=== PATIENT | male | born 1955 | race Caucasian/White ===

== ENCOUNTER 2017-08-29 12:36 | Inpatient (IN) ==
[2017-08-29] MEDS ORDERED: ONDANSETRON 4 MG/2 ML VIAL IV STA (13:30)
[2017-08-29] MEDS ORDERED: SODIUM CHLORIDE 0.9% 1,000 ML IV STA ×2 (13:30→15:22)
[2017-08-29 14:02] LABS: Basophils % 0.2 % (0.0-0.8); Eosinophils # 0.4 10*3/uL (0.0-0.87); Eosinophils % 4.5 % (0.00-10.9); Hematocrit 42.3 VOL% (42.0-52.0); Hemoglobin 14.2 GM/DL (14.0-18.0); Immature Granulocytes % 0.3 %; Immature Granulocytes Absolute 0.03 #; Lymphocytes # 0.3 10*3/uL (1.4-4.0); Lymphocytes % 3.6 % (21.2-54.2); Mean Corpuscular HGB Conc 33.6 GM/DL (32-36); Mean Corpuscular Hemoglobin 30 PG (27-34); Mean Corpuscular Volume 89.2 FL (87-102); Mean Platelet Volume 9.8 FL (9.6-12.0); Monocytes # 0.4 10*3/uL (0.11-0.8); Monocytes % 4.5 % (1.7-12.7); Neutrophils # 8.2 10*3/uL (1.4-7.4); Neutrophils % 86.9 % (38.7-73.9); Platelet Count 145 T/CUMM (130-400); Red Blood Count 4.74 MC/CUMM (3.8-5.5); Red Cell Distribution Width 13.6 % (9.3-17.3); White Blood Count 9.4 T/CUMM (4-12)
[2017-08-29 14:18] LABS: Albumin 3.7 G/DL (3.4-5.0); Bilirubin,Total 0.4 MG/DL (0.2-1.0); Calcium 7.9 MG/DL (8.5-10.1); Osmolality,Calculated 283.4 MOS/KG (273-304); Potassium 4.4 MMOL/L (3.5-5.1); Total Protein 7.2 G/DL (6.4-8.3)
[2017-08-29 14:58] LABS: Band Neutrophils 6 % (0-10); Eosinophils 4 % (0-10); Lymphocytes 4 % (20-55); Segmented Neutrophils 77 % (50-85); Total Cells Counted 100
[2017-08-29 14:59] LABS: Hypochromasia 1+; Platelet Estimate Normal
[2017-08-29 15:49] LABS: Apearance,Urine CLEAR (Clear); Bilirubin,Urine Negative (Negative); Blood, Urine Negative (Negative); Glucose,Urine (UA) Negative (Negative); Ketones,Urine 5 mg/dL (Negative); Mucus,Urine Occasional /LPF (Occasional); Nitrite,Urine Negative (Negative); Protein,Urine Negative; RBC,Urine 1 /HPF (0-4); Urine Color Yellow (Yellow); Urine Specific Gravity 1.044 (1.001-1.035); Urine Urobilinogen < 2.0 EU/DL (0.2-1.0); WBC,Urine 1 /HPF (0-6)
[2017-08-29] MEDS ORDERED: ACETAMINOPHEN 500 MG TABLET ONE (16:50)
[2017-08-29] MEDS ORDERED: ACETAMINOPHEN 500 MG TABLET PO STA (16:58)
[2017-08-29] MEDS ORDERED: PIPERACILLIN/TAZOBACTAM 3,375 MG in SODIUM CHLORIDE 0.9% 100 ML IV STA (17:01)
[2017-08-29] MEDS ORDERED: ONDANSETRON 4 MG/2 ML VIAL IV PRN (17:14)
[2017-08-29] MEDS ORDERED: ACETAMINOPHEN 325 MG TABLET PO PRN (17:14)
[2017-08-29] MEDS: SODIUM CHLORIDE 0.9% 1,000 ML IV SCH (17:35)
[2017-08-29] MEDS ORDERED: PROMETHAZINE 25 MG/1 ML VIAL IM PRN (18:49)
[2017-08-29] MEDS ORDERED: ALBUTEROL/IPRATROPIUM 3 ML NEB RESP TX PRN (18:49)
[2017-08-29] MEDS ORDERED: KETOROLAC 15 MG/1 ML VIAL IV PRN (18:49)
[2017-08-29] MEDS: methylPREDNISolone SOD SUC 40 MG/1 ML VIAL IV SCH (19:25)
[2017-08-29] MEDS: ALBUTEROL/IPRATROPIUM 3 ML NEB RESP TX SCH (20:05)
[2017-08-29] MEDS ORDERED: MAGNESIUM SULF RIDER 2 GM in PREMIX 1 EACH IV ONE (21:46)
[2017-08-29] MEDS ORDERED: DEXTROSE 50% 25 GM/50 ML VIAL IV PRN (21:50)
[2017-08-29] MEDS ORDERED: GLUCAGON 1 MG VIAL IM PRN (21:50)
[2017-08-29] MEDS: VALSARTAN 160 MG TABLET PO SCH (23:38)
[2017-08-29] MEDS: amLODIPine 10 MG TABLET PO SCH (23:39)
[2017-08-29] MEDS: DOCUSATE SODIUM 100 MG CAPSULE PO SCH (23:39)
[2017-08-30] MEDS: ALBUTEROL/IPRATROPIUM 3 ML NEB RESP TX SCH ×4 (00:36→20:20)
[2017-08-30] MEDS: PIPERACILLIN/TAZOBACTAM 3,375 MG in SODIUM CHLORIDE 0.9% 100 ML IV SCH ×4 (01:46→23:02)
[2017-08-30] MEDS: SODIUM CHLORIDE 0.9% 1,000 ML IV SCH ×4 (03:18→20:32)
[2017-08-30 04:55] LABS: Basophils % 0.1 % (0.0-0.8); Eosinophils % 0.1 % (0.00-10.9); Hematocrit 36.5 VOL% (42.0-52.0); Immature Granulocytes % 0.4 %; Immature Granulocytes Absolute 0.03 #; Lymphocytes # 0.6 10*3/uL (1.4-4.0); Mean Corpuscular HGB Conc 32.9 GM/DL (32-36); Mean Corpuscular Hemoglobin 30 PG (27-34); Mean Platelet Volume 10.4 FL (9.6-12.0); Monocytes # 0.2 10*3/uL (0.11-0.8); Monocytes % 2.6 % (1.7-12.7); Neutrophils # 6.5 10*3/uL (1.4-7.4); Neutrophils % 88.8 % (38.7-73.9); Platelet Count 129 T/CUMM (130-400); Red Blood Count 4.01 MC/CUMM (3.8-5.5); Red Cell Distribution Width 13.7 % (9.3-17.3); White Blood Count 7.3 T/CUMM (4-12)
[2017-08-30 05:18] LABS: Calcium 6.9 MG/DL (8.5-10.1); Osmolality,Calculated 284.4 MOS/KG (273-304); Potassium 3.9 MMOL/L (3.5-5.1)
[2017-08-30 05:53] LABS: Band Neutrophils 3 % (0-10); Lymphocytes 13 % (20-55); Platelet Estimate Decreased; Segmented Neutrophils 84 % (50-85); Total Cells Counted 100
[2017-08-30] MEDS ORDERED: MAGNESIUM SULF RIDER 1 GM in PREMIX 1 EACH IV ONE (09:00)
[2017-08-30] MEDS: methylPREDNISolone SOD SUC 40 MG/1 ML VIAL IV SCH ×2 (09:00→20:30)
[2017-08-30] MEDS: PANTOPRAZOLE 40 MG TABLET PO SCH (09:01)
[2017-08-30] MEDS: DOCUSATE SODIUM 100 MG CAPSULE PO SCH ×2 (09:02→20:24)
[2017-08-30] MEDS: INSULIN REGULAR 100 UNIT/ML SUBCUT SCH ×4 (09:09→20:25)
[2017-08-30] MEDS: CLINDAMYCIN INJ 600 MG in PREMIX 1 EACH IV SCH ×2 (10:16→16:49)
[2017-08-30] MEDS: ASPIRIN EC 81 MG TABLET PO SCH (20:31)
[2017-08-30] MEDS: VALSARTAN 160 MG TABLET PO SCH (20:31)
[2017-08-30] MEDS: amLODIPine 10 MG TABLET PO SCH (23:04)
[2017-08-31] MEDS: ALBUTEROL/IPRATROPIUM 3 ML NEB RESP TX SCH ×4 (01:03→19:00)
[2017-08-31] MEDS: CLINDAMYCIN INJ 600 MG in PREMIX 1 EACH IV SCH ×3 (01:11→16:59)
[2017-08-31 04:55] LABS: Basophils % 0.1 % (0.0-0.8); Eosinophils % 0.1 % (0.00-10.9); Hematocrit 34.2 VOL% (42.0-52.0); Hemoglobin 11.4 GM/DL (14.0-18.0); Immature Granulocytes % 0.6 %; Immature Granulocytes Absolute 0.05 #; Lymphocytes % 12.9 % (21.2-54.2); Mean Corpuscular HGB Conc 33.3 GM/DL (32-36); Mean Corpuscular Hemoglobin 30 PG (27-34); Mean Corpuscular Volume 89.8 FL (87-102); Mean Platelet Volume 9.8 FL (9.6-12.0); Monocytes # 0.4 10*3/uL (0.11-0.8); Monocytes % 4.9 % (1.7-12.7); Neutrophils # 6.5 10*3/uL (1.4-7.4); Neutrophils % 81.4 % (38.7-73.9); Platelet Count 137 T/CUMM (130-400); Red Blood Count 3.81 MC/CUMM (3.8-5.5); Red Cell Distribution Width 14.3 % (9.3-17.3)
[2017-08-31 05:12] LABS: Calcium 7.4 MG/DL (8.5-10.1); Potassium 4.5 MMOL/L (3.5-5.1)
[2017-08-31] MEDS: SODIUM CHLORIDE 0.9% 1,000 ML IV SCH ×3 (05:32→22:13)
[2017-08-31] MEDS: INSULIN REGULAR 100 UNIT/ML SUBCUT SCH ×4 (07:15→21:09)
[2017-08-31] MEDS: DOCUSATE SODIUM 100 MG CAPSULE PO SCH ×2 (08:58→20:54)
[2017-08-31] MEDS: PANTOPRAZOLE 40 MG TABLET PO SCH (08:58)
[2017-08-31] MEDS: PIPERACILLIN/TAZOBACTAM 3,375 MG in SODIUM CHLORIDE 0.9% 100 ML IV SCH ×2 (08:58→16:59)
[2017-08-31] MEDS: methylPREDNISolone SOD SUC 40 MG/1 ML VIAL IV SCH ×2 (08:59→20:53)
[2017-08-31] MEDS ORDERED: NOREPINEPHRINE 4 MG/4 ML VIAL IV ONE (13:53)
[2017-08-31] MEDS ORDERED: SIMETHICONE CHEW 80 MG TABLET PO PRN (18:30)
[2017-08-31] MEDS: ALUMINUM/MAGNES/SIMETH MAX STR 30 ML UDCUP PO PRN (19:01)
[2017-08-31] MEDS: amLODIPine 10 MG TABLET PO SCH (20:53)
[2017-08-31] MEDS: ASPIRIN EC 81 MG TABLET PO SCH (20:53)
[2017-08-31] MEDS: VALSARTAN 160 MG TABLET PO SCH (20:54)
[2017-09-01] MEDS: PIPERACILLIN/TAZOBACTAM 3,375 MG in SODIUM CHLORIDE 0.9% 100 ML IV SCH (00:27)
[2017-09-01] MEDS: CLINDAMYCIN INJ 600 MG in PREMIX 1 EACH IV SCH (00:30)
[2017-09-01] MEDS: ALBUTEROL/IPRATROPIUM 3 ML NEB RESP TX SCH ×2 (01:51→07:32)
[2017-09-01 04:21] VITALS: BP 136/75
[2017-09-01] MEDS: ALUMINUM/MAGNES/SIMETH MAX STR 30 ML UDCUP PO PRN (07:19)
[2017-09-01] MEDS: INSULIN REGULAR 100 UNIT/ML SUBCUT SCH ×2 (08:33→12:24)
[2017-09-01] MEDS ORDERED: AMOXICILLIN/CLAV 500 MG TABLET PO SCH (09:00)
[2017-09-01] MEDS ORDERED: PNEUMOCOCCAL VACCINE (23 VALENT) 0.5 ML VIAL IM ONE ×2 (09:00→13:30)
[2017-09-01] MEDS: PANTOPRAZOLE 40 MG TABLET PO SCH (09:06)
[2017-09-01] MEDS: DOCUSATE SODIUM 100 MG CAPSULE PO SCH (09:06)
== END 2017-09-01 13:43 | disposition home or self-care (01) | DRG 391 ==
LOC: EDBD → EDUNIT# → N.ED 12:36 → N.EDINP 17:13 → N.ICU 17:36
PROVIDERS: ADMIT Internal Medicine; ATTEND Internal Medicine

== ENCOUNTER 2018-12-05 11:02 | Inpatient (IN) ==
[~2018-12-05 11:02] MED LIST: ASPIRIN 325 MG TABLET PO ONE; DIAZEPAM 5 MG TABLET PO ONE; MAGNESIUM SULF RIDER 2 GM in PREMIX 1 EACH IV PRN; POTASSIUM CHLORIDE RIDER 10 MEQ in PREMIX 1 EACH IV PRN; diphenhydrAMINE CAP 25 MG CAPSULE PO ONE
[2018-12-05] MEDS ORDERED: ASPIRIN 325 MG TABLET ONE (12:17)
[2018-12-05] MEDS ORDERED: DIAZEPAM 5 MG TABLET ONE (12:17)
[2018-12-05] MEDS ORDERED: diphenhydrAMINE CAP 25 MG CAPSULE ONE (12:17)
[2018-12-05] MEDS: SODIUM CHLORIDE 0.9% 1,000 ML IV SCH ×2 (12:21→19:30)
[2018-12-05] MEDS ORDERED: LIDOCAINE 1% 20 ML VIAL ONE (12:46)
[2018-12-05] MEDS ORDERED: HEPARIN/NACL 0.9% 2 UNITS/ML 1,000 ML IV ONE (12:46)
[2018-12-05] MEDS ORDERED: HYDROmorphone 2 MG/1 ML VIAL ONE (13:12)
[2018-12-05] MEDS ORDERED: MIDAZOLAM 2 MG/2 ML VIAL ONE (13:13)
[2018-12-05] MEDS ORDERED: ZALEPLON 5 MG CAPSULE PO PRN (13:57)
[2018-12-05] MEDS ORDERED: ONDANSETRON 4 MG/2 ML VIAL IV PRN (13:57)
[2018-12-05] MEDS ORDERED: GLUCAGON 1 MG VIAL IM PRN (13:57)
[2018-12-05] MEDS ORDERED: NITROGLYCERIN SL 0.4 MG TABLET SL PRN (13:57)
[2018-12-05] MEDS ORDERED: DEXTROSE 50% 25 GM/50 ML VIAL IV PRN (13:57)
[2018-12-05] MEDS ORDERED: INFLUENZA VIRUS VACCINE 0.5 ML SYRINGE IM ONE (14:51)
[2018-12-05] MEDS: OLMESARTAN 20 MG TABLET PO SCH (20:48)
[2018-12-05] MEDS: ROSUVASTATIN 20 MG TABLET PO SCH (20:49)
[2018-12-05] MEDS: amLODIPine 10 MG TABLET PO SCH (20:49)
[2018-12-05] MEDS: ASPIRIN EC 81 MG TABLET PO SCH (20:49)
[2018-12-05] MEDS: OMEGA 3 ACID ETHYL ESTERS 1 GM CAPSULE PO SCH (20:49)
[2018-12-06 05:00] LABS: Calcium 8.8 MG/DL (8.5-10.1); Osmolality,Calculated 286.1 MOS/KG (273-304)
[2018-12-06] MEDS: SODIUM CHLORIDE 0.9% 1,000 ML IV SCH ×2 (05:52→16:01)
[2018-12-06] MEDS ORDERED: DEXTROSE 50% 25 GM/50 ML VIAL IV PRN (06:55)
[2018-12-06] MEDS ORDERED: CEFUROXIME INJ 1,500 MG in SYRINGE 1 EACH IV ONE (06:55)
[2018-12-06] MEDS ORDERED: GLUCAGON 1 MG VIAL IM PRN (06:55)
[2018-12-06] MEDS ORDERED: SODIUM CHLORIDE 0.9% 1,000 ML IV SCH (07:00)
[2018-12-06 08:31] LABS: ABG Base Excess 0.5 MMOL/L (-2.5-2.5); ABG HCO3 25.1 MMOL/L (20-26); ABG Oxygen Saturation 93.4 % (95-100); ABG PCO2 40.4 MM HG (35-48); ABG PH 7.411 (7.35-7.45); ABG PO2 66.9 MM HG (80-95); ABG TCO2 26.3 MMOL/L (23-27); Allen Test Positive; Pt O2 Delivery Device Room Air
[2018-12-06] MEDS ORDERED: CHLORTHALIDONE 25 MG TABLET PO SCH (09:00)
[2018-12-06] MEDS ORDERED: CHLORHEXIDINE 4% SOLN 118 ML BOTTLE TOP SCH (09:00)
[2018-12-06] MEDS: CHLORHEXIDINE 0.12% ORAL RINSE 60 ML BOTTLE SWISH/SPIT SCH ×2 (10:20→21:22)
[2018-12-06] MEDS: CHLORHEXIDINE 4% SOLN 118 ML BOTTLE TOP SCH ×3 (13:53→21:27)
[2018-12-06] MEDS: OLMESARTAN 20 MG TABLET PO SCH (21:17)
[2018-12-06] MEDS: ASPIRIN EC 81 MG TABLET PO SCH (21:17)
[2018-12-06] MEDS: OMEGA 3 ACID ETHYL ESTERS 1 GM CAPSULE PO SCH (21:17)
[2018-12-06] MEDS: ROSUVASTATIN 20 MG TABLET PO SCH (21:17)
[2018-12-06] MEDS: amLODIPine 10 MG TABLET PO SCH (21:22)
[2018-12-07] MEDS: SODIUM CHLORIDE 0.9% 1,000 ML IV SCH (01:53)
[2018-12-07] MEDS ORDERED: PAPAVERINE 60 MG/2 ML VIAL ONE (04:27)
[2018-12-07] MEDS ORDERED: VANCOMYCIN 1,000 MG VIAL ONE (04:28)
[2018-12-07] MEDS ORDERED: VANCOMYCIN 500 MG VIAL ONE (04:28)
[2018-12-07] MEDS: CHLORHEXIDINE 4% SOLN 118 ML BOTTLE TOP SCH ×2 (05:00→11:56)
[2018-12-07 05:48] LABS: Basophils % 0.6 % (0.0-0.8); Eosinophils # 0.6 10*3/uL (0.0-0.87); Eosinophils % 9.7 % (0.00-10.9); Hematocrit 41.4 VOL% (42.0-52.0); Hemoglobin 13.7 GM/DL (14.0-18.0); Immature Granulocytes % 0.3 %; Immature Granulocytes Absolute 0.02 #; Lymphocytes % 30.6 % (21.2-54.2); Mean Corpuscular HGB Conc 33.1 GM/DL (32-36); Mean Corpuscular Volume 89.6 FL (87-102); Mean Platelet Volume 10.6 FL (9.6-12.0); Monocytes % 8.4 % (1.7-12.7); Neutrophils % 50.4 % (38.7-73.9); Platelet Count 162 T/CUMM (130-400); Red Blood Count 4.62 MC/CUMM (3.8-5.5); Red Cell Distribution Width 13.4 % (9.3-17.3); White Blood Count 6.4 T/CUMM (4-12)
[2018-12-07] MEDS ORDERED: DIAZEPAM 5 MG TABLET PO ONE (06:00)
[2018-12-07] MEDS ORDERED: CEFUROXIME INJ 1,500 MG in SYRINGE 1 EACH IV ONE (06:00)
[2018-12-07] MEDS ORDERED: FAMOTIDINE 20 MG TABLET PO ONE (06:00)
[2018-12-07 06:05] LABS: Calcium 8.8 MG/DL (8.5-10.1); Osmolality,Calculated 286.1 MOS/KG (273-304)
[2018-12-07] MEDS ORDERED: SUFentanil 250 MCG/5 ML AMP ONE (06:20)
[2018-12-07] MEDS ORDERED: MIDAZOLAM 10 MG/2 ML VIAL ONE (06:20)
[2018-12-07] MEDS ORDERED: ePHEDrine 50 MG/ML AMP ONE (06:20)
[2018-12-07 07:44] LABS: ABG Base Excess 0.5 MMOL/L (-2.5-2.5); ABG HCO3 24.8 MMOL/L (20-26); ABG Oxygen Saturation 97.7 % (95-100); ABG PCO2 36.3 MM HG (35-48); ABG PH 7.434 (7.35-7.45); ABG PO2 90.7 MM HG (80-95); Glucose Heart Surgery 142 MG/DL (74-106); Hemoglobin Heart Surgery 13.7 G/DL (14.0-18.0); Ionized Calcium Arterial 1.17 MMOL/L (1.21-1.46); PCO2 Patient Temp Arterial 36.3 MMHG; PH Patient Temp Arterial 7.434; PO2 Patient Temp Arterial 90.7 MM HG; Patient Temperature 37 CELCIUS; Potassium Heart/CVR 4.4 MMOL/L (3.5-5.1); Sodium Heart/CVR 138 MMOL/L (135-145)
[2018-12-07 08:40] LABS: Apearance,Urine CLEAR (Clear); Bacteria,Urine Occasional /HPF (Few); Bilirubin,Urine Negative (Negative); Blood, Urine Negative (Negative); Glucose,Urine (UA) Negative (Negative); Ketones,Urine Negative (Negative); Mucus,Urine Occasional /LPF (Occasional); Nitrite,Urine Negative (Negative); Protein,Urine Negative; Squamous Epithelial Cell,Urine Occasional /HPF (0-10); Urine Color Yellow (Yellow); Urine Specific Gravity 1.012 (1.001-1.035); Urine Urobilinogen < 2.0 EU/DL (0.2-1.0)
[2018-12-07 09:09] LABS: Hemoglobin Heart Surgery 10.4 G/DL (14.0-18.0); PCO2 Patient Temp Venous 35.8 MM HG; PH Patient Temp Venous 7.456; PO2 Patient Temp Venous 34.8 MM HG; Potassium Heart/CVR 5.5 MMOL/L (3.5-5.1); VBG Base Excess 0.8 MEQ/L (0-4); VBG HCO3 25.1 MEQ/L (24-28); VBG Oxygen Saturation 76.3 %; VBG PCO2 39.1 MMHG (41-51); VBG PH 7.426; VBG PO2 40.1 MMHG (17-40)
[2018-12-07 09:39] LABS: Hemoglobin Heart Surgery 10.2 G/DL (14.0-18.0); PCO2 Patient Temp Venous 45.7 MM HG; PH Patient Temp Venous 7.359; VBG Base Excess -0.5 MEQ/L (0-4); VBG HCO3 25.4 MEQ/L (24-28); VBG Oxygen Saturation 76.1 %; VBG PCO2 47.7 MMHG (41-51); VBG PH 7.345; VBG PO2 42.9 MMHG (17-40)
[2018-12-07 09:40] LABS: Potassium Heart/CVR 6.2 MMOL/L (3.5-5.1)
[2018-12-07] MEDS ORDERED: NITROPRUSSIDE 50 MG/2 ML VIAL ONE (09:45)
[2018-12-07] MEDS ORDERED: PHENYLEPHRINE DRIP 40 MG/250 ML PREMIX IV ONE (09:45)
[2018-12-07 10:07] LABS: Hematocrit Heart Surgery 31.8 PERCENT (42-52); Hemoglobin Heart Surgery 10.3 G/DL (14.0-18.0); PCO2 Patient Temp Venous 41.4 MM HG; PH Patient Temp Venous 7.381; PO2 Patient Temp Venous 37.2 MM HG; VBG Base Excess -0.5 MEQ/L (0-4); VBG HCO3 23.6 MEQ/L (24-28); VBG Oxygen Saturation 74.5 %; VBG PCO2 43.4 MMHG (41-51); VBG PH 7.367; VBG PO2 39.9 MMHG (17-40)
[2018-12-07 10:09] LABS: Potassium Heart/CVR 6.6 MMOL/L (3.5-5.1)
[2018-12-07] MEDS ORDERED: HEPARIN 10,000 UNIT/10 ML VIAL ONE (10:40)
[2018-12-07] MEDS ORDERED: LIDOCAINE 2% 5 ML VIAL ONE ×2 (10:40→11:43)
[2018-12-07] MEDS ORDERED: MAGNESIUM SULFATE 5 GM/10 ML VIAL IV ONE (10:40)
[2018-12-07] MEDS ORDERED: methylPREDNISolone SOD SUC 1,000 MG/8 ML VIAL ONE (10:40)
[2018-12-07] MEDS ORDERED: DEXTROSE 5% KCL 20 MEQ 20 MEQ/1,000 ML BAG IV ONE (10:40)
[2018-12-07] MEDS ORDERED: MANNITOL 100 GM/500 ML BAG IV ONE (10:40)
[2018-12-07] MEDS ORDERED: ALBUMIN 25% 25 GM/100 ML VIAL IV ONE (10:40)
[2018-12-07] MEDS ORDERED: PROTAMINE SULFATE 250 MG/25 ML VIAL IV ONE (10:40)
[2018-12-07] MEDS ORDERED: SODIUM BICARBONATE 50 MEQ/50 ML VIAL IV ONE (10:40)
[2018-12-07] MEDS ORDERED: FUROSEMIDE 20 MG/2 ML VIAL ONE ×2 (10:41→11:43)
[2018-12-07] MEDS ORDERED: PROTAMINE SULFATE 50 MG/5 ML VIAL IV ONE (10:41)
[2018-12-07 10:52] LABS: ABG Base Excess -1.8 MMOL/L (-2.5-2.5); ABG HCO3 22.9 MMOL/L (20-26); ABG Oxygen Saturation 99.7 % (95-100); ABG PCO2 37.5 MM HG (35-48); ABG PH 7.391 (7.35-7.45); ABG TCO2 20.6 MMOL/L (23-27); Glucose Heart Surgery 191 MG/DL (74-106); Hematocrit Heart Surgery 32.5 PERCENT (42-52); Hemoglobin Heart Surgery 10.5 G/DL (14.0-18.0); Ionized Calcium Arterial 1.34 MMOL/L (1.21-1.46); PCO2 Patient Temp Arterial 37.5 MMHG; PH Patient Temp Arterial 7.391; Patient Temperature 37 CELCIUS; Potassium Heart/CVR 5.3 MMOL/L (3.5-5.1); Sodium Heart/CVR 130 MMOL/L (135-145)
[2018-12-07] MEDS ORDERED: CALCIUM CHLORIDE 1,000 MG/10 ML SYRINGE IV PRN (11:42)
[2018-12-07] MEDS ORDERED: MIDAZOLAM 10 MG/2 ML VIAL IV PRN (11:42)
[2018-12-07] MEDS ORDERED: DEXTROSE 50% 25 GM/50 ML VIAL IV PRN ×2 (11:42)
[2018-12-07] MEDS ORDERED: MORPHINE 4 MG/1 ML VIAL IV PRN (11:42)
[2018-12-07] MEDS ORDERED: ONDANSETRON 4 MG/2 ML VIAL IV PRN (11:42)
[2018-12-07] MEDS ORDERED: LACTATED RINGERS 250 ML IV PRN (11:42)
[2018-12-07] MEDS ORDERED: MAGNESIUM SULF RIDER 4 GM in PREMIX 1 EACH IV PRN (11:42)
[2018-12-07] MEDS ORDERED: INSULIN REGULAR 100 UNIT/ML IV ONE (11:42)
[2018-12-07] MEDS ORDERED: NITROPRUSSIDE 100 MG in DEXTROSE 5% 250 ML IV PRN (11:42)
[2018-12-07] MEDS ORDERED: INSULIN REGULAR 100 UNIT/ML IV PRN (11:42)
[2018-12-07] MEDS ORDERED: MAGNESIUM SULF RIDER 2 GM in PREMIX 1 EACH IV PRN (11:42)
[2018-12-07] MEDS ORDERED: VECURONIUM 10 MG VIAL IV PRN ×2 (11:42)
[2018-12-07] MEDS ORDERED: ACETAMINOPHEN 650 MG SUPP RECTAL PRN (11:42)
[2018-12-07] MEDS ORDERED: HEPARIN/NACL 0.9% 2 UNITS/ML 500 ML IV ONE (11:43)
[2018-12-07] MEDS ORDERED: ALBUMIN 5% 12.5 GM/250 ML VIAL IV ONE (11:43)
[2018-12-07] MEDS ORDERED: PHENYLEPHRINE DRIP 20 MG/250 ML PREMIX IV ONE (11:43)
[2018-12-07] MEDS ORDERED: CALCIUM CHLORIDE 1,000 MG/10 ML VIAL IV ONE (11:43)
[2018-12-07] MEDS ORDERED: SEVOFLURANE 1 UNIT/15 MINUTE INH ONE (11:43)
[2018-12-07] MEDS ORDERED: SODIUM CHLORIDE 0.9% 1,000 ML IV ONE (11:44)
[2018-12-07] MEDS ORDERED: ALBUTEROL INHALER 8 GM INH ONE (11:44)
[2018-12-07] MEDS ORDERED: SODIUM CHLORIDE 0.9% 100 ML IV ONE (11:44)
[2018-12-07] MEDS ORDERED: AMINOCAPROIC ACID 5,000 MG/20 ML VIAL ONE (11:44)
[2018-12-07] MEDS ORDERED: SODIUM CHLORIDE 0.9% 250 ML IV ONE (11:44)
[2018-12-07] MEDS: PHENYLEPHRINE DRIP 40 MG/250 ML PREMIX IV PRN (11:59)
[2018-12-07] MEDS ORDERED: SODIUM CHLORIDE 0.45% 1,000 ML IV SCH ×2 (12:00)
[2018-12-07] MEDS ORDERED: INSULIN REGULAR DRIP 100 ML IV SCH (12:00)
[2018-12-07 12:11] LABS: ABG Base Excess -2.6 MMOL/L (-2.5-2.5); ABG HCO3 23.4 MMOL/L (20-26); ABG Oxygen Saturation 95.1 % (95-100); ABG PCO2 45.8 MM HG (35-48); ABG PH 7.327 (7.35-7.45); ABG PO2 82.6 MM HG (80-95); ABG TCO2 24.8 MMOL/L (23-27); Glucose Heart Surgery 173 MG/DL (74-106); Hemoglobin Heart Surgery 11.5 G/DL (14.0-18.0); Potassium Heart/CVR 3.8 MMOL/L (3.5-5.1)
[2018-12-07 12:15] LABS: Basophils % 0.4 % (0.0-0.8); Eosinophils # 0.1 10*3/uL (0.0-0.87); Eosinophils % 1.1 % (0.00-10.9); Hematocrit 32.8 VOL% (42.0-52.0); Hemoglobin 10.5 GM/DL (14.0-18.0); Immature Granulocytes % 0.5 %; Immature Granulocytes Absolute 0.04 #; Lymphocytes # 1.4 10*3/uL (1.4-4.0); Lymphocytes % 17.1 % (21.2-54.2); Mean Corpuscular Volume 91.4 FL (87-102); Monocytes % 5.4 % (1.7-12.7); Neutrophils % 75.5 % (38.7-73.9); Platelet Count 125 T/CUMM (130-400); Red Blood Count 3.59 MC/CUMM (3.8-5.5); Red Cell Distribution Width 13.4 % (9.3-17.3)
[2018-12-07 12:25] LABS: INR 1.1; PT Patient Result 11.9 SECS (9.6-12.2); Partial Thromboplastin Time 26.1 SECS (20.8-36.0)
[2018-12-07] MEDS: LACTATED RINGERS 1,000 ML IV PRN ×2 (12:46→13:31)
[2018-12-07 12:47] LABS: CKMB % 5.1 %
[2018-12-07 12:50] LABS: Troponin I 4.65 NG/ML (0.00-0.045)
[2018-12-07 12:53] LABS: Band Neutrophils 1 % (0-10); Eosinophils 1 % (0-10); Lymphocytes 9 % (20-55); Segmented Neutrophils 87 % (50-85); Total Cells Counted 100
[2018-12-07 12:55] LABS: Platelet Estimate Decreased
[2018-12-07 12:59] LABS: Albumin 3.5 G/DL (3.4-5.0); Bilirubin,Total 0.5 MG/DL (0.2-1.0); Osmolality,Calculated 281.7 MOS/KG (273-304); Total Protein 5.6 G/DL (6.4-8.3)
[2018-12-07 12:59] LABS: ABG HCO3 22.7 MMOL/L (20-26); ABG Oxygen Saturation 95.6 % (95-100); ABG PCO2 44.6 MM HG (35-48); ABG PH 7.339 (7.35-7.45); ABG PO2 80.2 MM HG (80-95); ABG TCO2 21.5 MMOL/L (23-27); Glucose Heart Surgery 190 MG/DL (74-106); Hematocrit Heart Surgery 35.3 PERCENT (42-52); Hemoglobin Heart Surgery 11.5 G/DL (14.0-18.0); Potassium Heart/CVR 3.8 MMOL/L (3.5-5.1)
[2018-12-07] MEDS: POTASSIUM CHLORIDE RIDER 20 MEQ in PREMIX 1 EACH IV PRN ×3 (13:15→21:16)
[2018-12-07] MEDS: MIDAZOLAM 2 MG/2 ML VIAL IV PRN ×2 (13:17→14:12)
[2018-12-07 14:15] LABS: ABG Base Excess -0.7 MMOL/L (-2.5-2.5); ABG HCO3 23.8 MMOL/L (20-26); ABG Oxygen Saturation 96.9 % (95-100); ABG PCO2 39.4 MM HG (35-48); ABG PH 7.394 (7.35-7.45); ABG PO2 86.4 MM HG (80-95); ABG TCO2 21.6 MMOL/L (23-27); Glucose Heart Surgery 173 MG/DL (74-106); Hematocrit Heart Surgery 33.9 PERCENT (42-52); Potassium Heart/CVR 3.9 MMOL/L (3.5-5.1)
[2018-12-07] MEDS: KETOROLAC 30 MG/1 ML VIAL IV SCH ×2 (14:22→19:00)
[2018-12-07] MEDS ORDERED: DEXTROSE 10% 250 ML IV ONE (15:23)
[2018-12-07] MEDS: ALBUMIN 5% 12.5 GM in PREMIX 1 EACH IV PRN ×4 (15:26→23:46)
[2018-12-07] MEDS ORDERED: DEXTROSE 10% 250 ML BAG IV PRN ×2 (16:00)
[2018-12-07] MEDS: POTASSIUM CHLORIDE RIDER 10 MEQ in PREMIX 1 EACH IV PRN (16:18)
[2018-12-07 17:10] LABS: ABG Base Excess -1.1 MMOL/L (-2.5-2.5); ABG HCO3 22.7 MMOL/L (20-26); ABG Oxygen Saturation 96.1 % (95-100); ABG PCO2 34.8 MM HG (35-48); ABG PH 7.432 (7.35-7.45); ABG PO2 83.2 MM HG (80-95); ABG TCO2 23.8 MMOL/L (23-27); Glucose Heart Surgery 180 MG/DL (74-106); Hemoglobin Heart Surgery 11.4 G/DL (14.0-18.0); Potassium Heart/CVR 4.3 MMOL/L (3.5-5.1)
[2018-12-07 18:21] LABS: ABG Base Excess -1.5 MMOL/L (-2.5-2.5); ABG HCO3 23.1 MMOL/L (20-26); ABG Oxygen Saturation 96.8 % (95-100); ABG PCO2 35.1 MM HG (35-48); ABG PH 7.415 (7.35-7.45); ABG PO2 83.1 MM HG (80-95); ABG TCO2 20.3 MMOL/L (23-27); Glucose Heart Surgery 179 MG/DL (74-106); Hematocrit Heart Surgery 33.3 PERCENT (42-52); Hemoglobin Heart Surgery 10.8 G/DL (14.0-18.0); Potassium Heart/CVR 4.1 MMOL/L (3.5-5.1)
[2018-12-07] MEDS: CEFUROXIME INJ 1,500 MG in SYRINGE 1 EACH IV SCH (19:02)
[2018-12-07 19:31] LABS: ABG Base Excess -2.4 MMOL/L (-2.5-2.5); ABG HCO3 22.4 MMOL/L (20-26); ABG Oxygen Saturation 97.1 % (95-100); ABG PH 7.386 (7.35-7.45); ABG PO2 86.2 MM HG (80-95); ABG TCO2 20.1 MMOL/L (23-27); Glucose Heart Surgery 167 MG/DL (74-106); Hematocrit Heart Surgery 32.3 PERCENT (42-52); Hemoglobin Heart Surgery 10.4 G/DL (14.0-18.0); Potassium Heart/CVR 4.1 MMOL/L (3.5-5.1)
[2018-12-07 20:02] LABS: CKMB % 4.1 %
[2018-12-07 20:10] LABS: Troponin I 5.45 NG/ML (0.00-0.045)
[2018-12-07 21:06] LABS: ABG Base Excess -2.3 MMOL/L (-2.5-2.5); ABG HCO3 22.3 MMOL/L (20-26); ABG Oxygen Saturation 90.9 % (95-100); ABG PCO2 38.7 MM HG (35-48); ABG PH 7.374 (7.35-7.45); ABG PO2 60.4 MM HG (80-95); ABG TCO2 20.5 MMOL/L (23-27); Glucose Heart Surgery 147 MG/DL (74-106); Potassium Heart/CVR 4.2 MMOL/L (3.5-5.1)
[2018-12-07 21:07] LABS: Hematocrit Heart Surgery 32.5 PERCENT (42-52); Hemoglobin Heart Surgery 10.5 G/DL (14.0-18.0)
[2018-12-07] MEDS: CHLORHEXIDINE 0.12% ORAL RINSE 60 ML BOTTLE SWISH/SPIT SCH (21:16)
[2018-12-08] MEDS: KETOROLAC 30 MG/1 ML VIAL IV SCH ×4 (00:01→18:00)
[2018-12-08] MEDS: MORPHINE 10 MG/1 ML VIAL IV PRN ×2 (02:14→11:00)
[2018-12-08 04:21] LABS: ABG Base Excess -2.3 MMOL/L (-2.5-2.5); ABG HCO3 22.4 MMOL/L (20-26); ABG Oxygen Saturation 91.4 % (95-100); ABG PH 7.365 (7.35-7.45); ABG PO2 62.2 MM HG (80-95); Glucose Heart Surgery 160 MG/DL (74-106); Hematocrit Heart Surgery 29.9 PERCENT (42-52); Hemoglobin Heart Surgery 9.7 G/DL (14.0-18.0); Potassium Heart/CVR 4.1 MMOL/L (3.5-5.1)
[2018-12-08 04:24] LABS: Basophils % 0.1 % (0.0-0.8); Hemoglobin 9.3 GM/DL (14.0-18.0); Immature Granulocytes % 0.6 %; Immature Granulocytes Absolute 0.08 #; Lymphocytes % 6.9 % (21.2-54.2); Mean Corpuscular HGB Conc 32.1 GM/DL (32-36); Mean Corpuscular Volume 91.5 FL (87-102); Mean Platelet Volume 10.2 FL (9.6-12.0); Monocytes % 3.6 % (1.7-12.7); Neutrophils % 88.8 % (38.7-73.9); Platelet Count 152 T/CUMM (130-400); Red Blood Count 3.17 MC/CUMM (3.8-5.5); Red Cell Distribution Width 13.7 % (9.3-17.3)
[2018-12-08] MEDS ORDERED: FUROSEMIDE 40 MG/4 ML VIAL IV ONE (04:27)
[2018-12-08] MEDS: POTASSIUM CHLORIDE RIDER 10 MEQ in PREMIX 1 EACH IV PRN (04:34)
[2018-12-08 04:50] LABS: Albumin 3.7 G/DL (3.4-5.0); Atypical Lymphocytes Few; Bilirubin,Direct 0.13 MG/DL (0.0-0.20); Bilirubin,Total 0.4 MG/DL (0.2-1.0); Calcium 8.3 MG/DL (8.5-10.1); Lymphocytes 9 % (20-55); Osmolality,Calculated 288.3 MOS/KG (273-304); Segmented Neutrophils 86 % (50-85); Total Cells Counted 100; Total Protein 6.1 G/DL (6.4-8.3)
[2018-12-08 04:51] LABS: CKMB % 3.1 %; Hypochromasia Slight; Microcytosis 1+; Platelet Estimate Adequate
[2018-12-08 04:57] LABS: Troponin I 5.94 NG/ML (0.00-0.045)
[2018-12-08] MEDS: POTASSIUM CHLORIDE RIDER 20 MEQ in PREMIX 1 EACH IV PRN (05:05)
[2018-12-08] MEDS: CEFUROXIME INJ 1,500 MG in SYRINGE 1 EACH IV SCH ×3 (06:55→18:40)
[2018-12-08] MEDS: ALBUMIN 5% 12.5 GM in PREMIX 1 EACH IV PRN (07:24)
[2018-12-08] MEDS ORDERED: HEPARIN/NACL 0.9% 2 UNITS/ML 500 ML IV ONE (09:44)
[2018-12-08] MEDS: PHENYLEPHRINE DRIP 40 MG/250 ML PREMIX IV PRN (11:07)
[2018-12-08] MEDS: CHLORHEXIDINE 0.12% ORAL RINSE 60 ML BOTTLE SWISH/SPIT SCH ×2 (11:12→20:36)
[2018-12-08] MEDS ORDERED: SODIUM CHLOR 0.45% KCL 20 MEQ 20 MEQ/1,000 ML BAG IV SCH (11:30)
[2018-12-08] MEDS: ASCORBIC ACID 500 MG TABLET PO SCH ×2 (13:37→20:38)
[2018-12-08] MEDS: INSULIN REGULAR 100 UNIT/ML SUBCUT SCH ×3 (13:37→20:36)
[2018-12-08] MEDS ORDERED: ACETAMINOPHEN 325 MG TABLET PO PRN (14:05)
[2018-12-08] MEDS: metFORMIN 500 MG TABLET PO SCH (18:00)
[2018-12-08] MEDS ORDERED: oxyCODONE/ACETAMINOPHEN 5-325 MG TABLET PO PRN (18:55)
[2018-12-09] MEDS: INSULIN REGULAR 100 UNIT/ML SUBCUT SCH ×2 (00:24→04:17)
[2018-12-09 04:51] LABS: Basophils % 0.1 % (0.0-0.8); Hematocrit 28.2 VOL% (42.0-52.0); Hemoglobin 9.2 GM/DL (14.0-18.0); Immature Granulocytes % 1.3 %; Immature Granulocytes Absolute 0.23 #; Lymphocytes # 1.3 10*3/uL (1.4-4.0); Lymphocytes % 7.3 % (21.2-54.2); Mean Corpuscular HGB Conc 32.6 GM/DL (32-36); Mean Corpuscular Volume 93.4 FL (87-102); Mean Platelet Volume 10.5 FL (9.6-12.0); Monocytes % 7.4 % (1.7-12.7); Neutrophils % 83.9 % (38.7-73.9); Platelet Count 163 T/CUMM (130-400); Red Blood Count 3.02 MC/CUMM (3.8-5.5); Red Cell Distribution Width 14.3 % (9.3-17.3); White Blood Count 18.1 T/CUMM (4-12)
[2018-12-09 05:18] LABS: Alanine Aminotransferase 29 U/L (16-61); Albumin 3.3 G/DL (3.4-5.0); Alkaline Phosphatase 43 U/L (45-117); Aspartate Amino Transferase 21 U/L (0-37); Bilirubin,Direct < 0.100 MG/DL (0.0-0.20); Blood Urea Nitrogen 45 MG/DL (7-18); Calcium 8.1 MG/DL (8.5-10.1); Estimated Glom Filtration Rate 75 ML/MIN; Glucose 138 MG/DL (74-106); Osmolality,Calculated 294.3 MOS/KG (273-304)
[2018-12-09 05:34] LABS: Band Neutrophils 1 % (0-10); Lymphocytes 6 % (20-55); Segmented Neutrophils 87 % (50-85); Total Cells Counted 100
[2018-12-09 05:35] LABS: Platelet Estimate Normal
[2018-12-09] MEDS ORDERED: INSULIN REGULAR 100 UNIT/ML SUBCUT SCH (07:30)
[2018-12-09] MEDS ORDERED: DEXTROSE 50% 25 GM/50 ML VIAL IV PRN ×2 (08:44)
[2018-12-09] MEDS ORDERED: MAGNESIUM HYDROXIDE SUSP 30 ML UDCUP PO PRN (08:44)
[2018-12-09] MEDS ORDERED: SODIUM CHLOR 0.45% KCL 20 MEQ 20 MEQ/1,000 ML BAG IV SCH (08:44)
[2018-12-09] MEDS ORDERED: ONDANSETRON 4 MG/2 ML VIAL IV PRN (08:44)
[2018-12-09] MEDS ORDERED: MAGNESIUM SULF RIDER 2 GM in PREMIX 1 EACH IV PRN (08:44)
[2018-12-09] MEDS ORDERED: ALUMINUM/MAGNES/SIMETH MAX STR 30 ML UDCUP PO PRN (08:44)
[2018-12-09] MEDS ORDERED: POTASSIUM CHLORIDE 20 MEQ TABLET PO PRN (08:44)
[2018-12-09] MEDS ORDERED: MAGNESIUM SULF RIDER 4 GM in PREMIX 1 EACH IV PRN (08:44)
[2018-12-09] MEDS ORDERED: ZALEPLON 5 MG CAPSULE PO PRN (08:44)
[2018-12-09] MEDS ORDERED: GLUCAGON 1 MG VIAL IM PRN ×2 (08:44)
[2018-12-09] MEDS: FERROUS SULFATE 325 MG TABLET PO SCH (09:21)
[2018-12-09] MEDS: ASCORBIC ACID 500 MG TABLET PO SCH ×2 (09:21→21:54)
[2018-12-09] MEDS: CHLORTHALIDONE 25 MG TABLET PO SCH (09:22)
[2018-12-09] MEDS: DOCUSATE SODIUM 100 MG CAPSULE PO SCH (09:23)
[2018-12-09] MEDS: PANTOPRAZOLE 40 MG TABLET PO SCH (09:23)
[2018-12-09] MEDS: CHLORHEXIDINE 0.12% ORAL RINSE 60 ML BOTTLE SWISH/SPIT SCH ×2 (09:24→21:53)
[2018-12-09] MEDS: oxyCODONE/ACETAMINOPHEN 5-325 MG TABLET PO PRN ×3 (11:52→21:55)
[2018-12-09] MEDS: metFORMIN 500 MG TABLET PO SCH (17:02)
[2018-12-09] MEDS ORDERED: metFORMIN 500 MG TABLET PO SCH (21:00)
[2018-12-09] MEDS: ASPIRIN EC 81 MG TABLET PO SCH (21:54)
[2018-12-09] MEDS: OMEGA 3 ACID ETHYL ESTERS 1 GM CAPSULE PO SCH (21:56)
[2018-12-09] MEDS: ROSUVASTATIN 20 MG TABLET PO SCH (21:56)
[2018-12-10] MEDS: oxyCODONE/ACETAMINOPHEN 5-325 MG TABLET PO PRN (04:27)
[2018-12-10 04:59] LABS: Basophils % 0.3 % (0.0-0.8); Eosinophils # 0.1 10*3/uL (0.0-0.87); Eosinophils % 0.9 % (0.00-10.9); Hematocrit 27.5 VOL% (42.0-52.0); Hemoglobin 8.8 GM/DL (14.0-18.0); Immature Granulocytes % 0.8 %; Immature Granulocytes Absolute 0.06 #; Lymphocytes # 2.2 10*3/uL (1.4-4.0); Lymphocytes % 27.9 % (21.2-54.2); Mean Corpuscular Volume 93.2 FL (87-102); Mean Platelet Volume 10.6 FL (9.6-12.0); Monocytes % 11.3 % (1.7-12.7); Neutrophils % 58.8 % (38.7-73.9); Platelet Count 123 T/CUMM (130-400); Red Blood Count 2.95 MC/CUMM (3.8-5.5)
[2018-12-10 05:21] LABS: Alanine Aminotransferase 26 U/L (16-61); Albumin 3.1 G/DL (3.4-5.0); Alkaline Phosphatase 41 U/L (45-117); Aspartate Amino Transferase 15 U/L (0-37); Bilirubin,Direct < 0.100 MG/DL (0.0-0.20); Bilirubin,Indirect 0.3 MG/DL (0.0-1.0); Blood Urea Nitrogen 37 MG/DL (7-18); Estimated Glom Filtration Rate 83 ML/MIN; Glucose 99 MG/DL (74-106); Total Protein 5.7 G/DL (6.4-8.3)
[2018-12-10] MEDS ORDERED: FUROSEMIDE 40 MG/4 ML VIAL IV ONE (06:00)
[2018-12-10] MEDS: DOCUSATE SODIUM 100 MG CAPSULE PO SCH (08:53)
[2018-12-10] MEDS: FERROUS SULFATE 325 MG TABLET PO SCH (08:53)
[2018-12-10] MEDS: CHLORTHALIDONE 25 MG TABLET PO SCH (08:54)
[2018-12-10] MEDS: CHLORHEXIDINE 0.12% ORAL RINSE 60 ML BOTTLE SWISH/SPIT SCH ×2 (08:55→22:09)
[2018-12-10] MEDS: PANTOPRAZOLE 40 MG TABLET PO SCH (08:56)
[2018-12-10] MEDS: ASCORBIC ACID 500 MG TABLET PO SCH ×2 (08:56→22:09)
[2018-12-10] MEDS: metFORMIN 500 MG TABLET PO SCH (17:21)
[2018-12-10] MEDS: ACETAMINOPHEN 325 MG TABLET PO PRN (17:21)
[2018-12-10] MEDS: OMEGA 3 ACID ETHYL ESTERS 1 GM CAPSULE PO SCH (22:08)
[2018-12-10] MEDS: ASPIRIN EC 81 MG TABLET PO SCH (22:08)
[2018-12-10] MEDS: ROSUVASTATIN 20 MG TABLET PO SCH (22:09)
[2018-12-11] MEDS: oxyCODONE/ACETAMINOPHEN 5-325 MG TABLET PO PRN ×2 (01:01→21:10)
[2018-12-11 05:20] LABS: Basophils % 0.5 % (0.0-0.8); Eosinophils # 0.3 10*3/uL (0.0-0.87); Eosinophils % 3.4 % (0.00-10.9); Hematocrit 31.8 VOL% (42.0-52.0); Hemoglobin 10.1 GM/DL (14.0-18.0); Immature Granulocytes % 0.9 %; Immature Granulocytes Absolute 0.07 #; Lymphocytes # 2.6 10*3/uL (1.4-4.0); Lymphocytes % 31.7 % (21.2-54.2); Mean Corpuscular HGB Conc 31.8 GM/DL (32-36); Mean Corpuscular Volume 92.2 FL (87-102); Mean Platelet Volume 10.2 FL (9.6-12.0); Monocytes % 8.8 % (1.7-12.7); Neutrophils % 54.7 % (38.7-73.9); Platelet Count 166 T/CUMM (130-400); Red Blood Count 3.45 MC/CUMM (3.8-5.5); Red Cell Distribution Width 13.7 % (9.3-17.3); White Blood Count 8.1 T/CUMM (4-12)
[2018-12-11 05:59] LABS: Alanine Aminotransferase 28 U/L (16-61); Albumin 3.2 G/DL (3.4-5.0); Alkaline Phosphatase 48 U/L (45-117); Aspartate Amino Transferase 14 U/L (0-37); Bilirubin,Direct < 0.100 MG/DL (0.0-0.20); Bilirubin,Indirect 0.3 MG/DL (0.0-1.0); Bilirubin,Total < 0.39 MG/DL (0.2-1.0); Blood Urea Nitrogen 29 MG/DL (7-18); Calcium 8.5 MG/DL (8.5-10.1); Estimated Glom Filtration Rate 83 ML/MIN; Glucose 108 MG/DL (74-106); Osmolality,Calculated 287.3 MOS/KG (273-304); Total Protein 6.3 G/DL (6.4-8.3)
[2018-12-11] MEDS: CHLORTHALIDONE 25 MG TABLET PO SCH (08:45)
[2018-12-11] MEDS: FERROUS SULFATE 325 MG TABLET PO SCH (08:46)
[2018-12-11] MEDS: DOCUSATE SODIUM 100 MG CAPSULE PO SCH (08:46)
[2018-12-11] MEDS: PANTOPRAZOLE 40 MG TABLET PO SCH (08:46)
[2018-12-11] MEDS: CHLORHEXIDINE 0.12% ORAL RINSE 60 ML BOTTLE SWISH/SPIT SCH ×2 (08:48→21:11)
[2018-12-11] MEDS: ACETAMINOPHEN 325 MG TABLET PO PRN (12:33)
[2018-12-11] MEDS: ASCORBIC ACID 500 MG TABLET PO SCH ×2 (13:05→21:11)
[2018-12-11] MEDS: metFORMIN 500 MG TABLET PO SCH (17:03)
[2018-12-11] MEDS: OMEGA 3 ACID ETHYL ESTERS 1 GM CAPSULE PO SCH (21:11)
[2018-12-11] MEDS: ROSUVASTATIN 20 MG TABLET PO SCH (21:11)
[2018-12-11] MEDS: ASPIRIN EC 81 MG TABLET PO SCH (21:11)
[2018-12-12 07:53] VITALS: BP 144/89
[2018-12-12] MEDS: DOCUSATE SODIUM 100 MG CAPSULE PO SCH (09:56)
[2018-12-12] MEDS: FERROUS SULFATE 325 MG TABLET PO SCH (09:56)
[2018-12-12] MEDS: CHLORTHALIDONE 25 MG TABLET PO SCH (09:56)
[2018-12-12] MEDS: CHLORHEXIDINE 0.12% ORAL RINSE 60 ML BOTTLE SWISH/SPIT SCH (09:56)
[2018-12-12] MEDS: PANTOPRAZOLE 40 MG TABLET PO SCH (09:57)
[2018-12-12] MEDS: ASCORBIC ACID 500 MG TABLET PO SCH (10:01)
== END 2018-12-12 11:16 | disposition home health service (06) | DRG 234 ==
LOC: N.CL 11:02 → N.TELEN 14:28 → N.CVR 12-07 11:32 → N.ICU 12-08 14:35 → N.TELES 12-09 12:13